=== PATIENT | female | born 1995 | race Caucasian/White ===

== ENCOUNTER 2017-03-24 01:35 | Emergency (ER) | payer SELFPAY ==
[~2017-03-24] VITALS: Ht 165.1 cm; Wt 54.0 kg
[2017-03-24 01:39] VITALS: Ht 165.1 cm; Wt 54.0 kg
== END 2017-03-24 05:08 | disposition left against medical advice (07) ==
LOC: FTE 01:35
DX: Z53.21 Procedure and treatment not carried out due to patient leaving prior to being seen by health care provider (principal)

== ENCOUNTER 2017-06-04 17:30 | Emergency (ER) | payer OTHER ==
[~2017-06-04] VITALS: Ht 162.6 cm; Wt 54.0 kg
[2017-06-04 17:31] VITALS: Ht 162.6 cm; Wt 54.0 kg
[2017-06-04 20:05] LABS: BASOPHILS % 0.4 % (0.0-2.0); EOSINOPHILS # 0.2 10^3/ul (0.0-0.5); EOSINOPHILS % 2.4 % (0.0-7.0); HEMATOCRIT 33.4 % (37.0-47.0); HEMOGLOBIN 10.7 g/dl (12.0-16.0); MEAN CORPUSCULAR HEMOGLOBIN 25.2 pg (29.0-33.0); MEAN CORPUSCULAR VOLUME 78.8 fl (82.0-101.0); MEAN PLATELET VOLUME 11.7 fl (7.4-10.4); MONOCYTE # 0.7 10^3/ul (0.3-0.9); MONOCYTES % 9.2 % (0.0-11.0); NEUTROPHILS % 62.6 % (39.0-77.0); PLATELET COUNT 230 10^3/UL (140-415); RED BLOOD COUNT 4.24 10^6/ul (4.20-5.40); RED CELL DISTRIBUTION WIDTH 16.2 % (11.5-14.5); WHITE BLOOD COUNT 7.9 10^3/ul (4.8-10.8)
[2017-06-04 20:19] LABS: ADD UMIC YES; UR ASCORBIC ACID 20 mg/dL (NEGATIVE); UR BILIRUBIN (Dip) NEGATIVE (NEGATIVE); UR BLOOD (Dip) NEGATIVE (NEGATIVE); UR CLARITY CLEAR (CLEAR); UR COLOR STRAW (YELLOW); UR GLUCOSE (Dip) NEGATIVE (NEGATIVE); UR KETONES (Dip) NEGATIVE (NEGATIVE); UR LEUKOCYTE ESTERASE (Dip) TRACE Leu/ul (NEGATIVE); UR NITRITE (Dip) NEGATIVE (NEGATIVE); UR RBC 0 /HPF (0-5); UR SPECIFIC GRAVITY (Dip) 1.013 (1.003-1.030); UR SQUAMOUS EPITHELIAL CELL FEW /HPF (FEW); UR TOTAL PROTEIN (Dip) NEGATIVE (NEGATIVE); UR UROBILINOGEN (Dip) NEGATIVE (NEGATIVE)
--- NOTE | 2017-06-04 21:01 | ERD ---
ER Documentation Chief Complaint Date/Time DATE: 06/04/17 TIME: 20:59 Chief Complaint 7/10 pelvic pain x 3 days denies bleeding HPI This is a 21-year-old female P0 presents to the emergency department complaining of intermittent 7 out of 10 pelvic pain for the past 2 days. LMP 1 month prior to being seen She denies any vaginal bleeding, dysuria, fevers. ROS All systems reviewed and are negative except as per history of present illness. Allergies Allergies: Coded Allergies: No Known Allergy (Unverified , 03/24/17) PMhx/Soc Medical and Surgical Hx: pt denies Medical Hx, pt denies Surgical Hx History of Surgery: Yes (appendectomy) Anesthesia Reaction: No Hx Neurological Disorder: No Hx Respiratory Disorders: No Hx Cardiac Disorders: No Hx Psychiatric Problems: No Hx Miscellaneous Medical Probl: No Hx Alcohol Use: No Hx Substance Use: No Hx Tobacco Use: No Smoking Status: Never smoker Physical Exam Vitals Vital Signs Date Time Temp Pulse Resp B/P Pulse Ox O2 Delivery O2 Flow Rate FiO2 06/04/17 17:31 99.0 79 16 106/59 100 Physical Exam Const: [] Head: Atraumatic Eyes: Normal Conjunctiva ENT: Normal External Ears, Nose and Mouth. Neck: Full range of motion..~ No meningismus. Resp: Clear to auscultation bilaterally Cardio: Regular rate and rhythm, no murmurs Abd: Soft, non tender, non distended. Normal bowel sounds Skin: No petechiae or rashes Back: No midline or flank tenderness Ext: No cyanosis, or edema Neur: Awake and alert Psych: Normal Mood and Affect Result Diagram: 06/04/17 1950 Results 24 hrs Laboratory Tests Test 06/04/17 19:48 06/04/17 19:50 Urine Color STRAW Urine Clarity CLEAR Urine pH 7.0 Urine Specific Lapel 1.013 Urine Ketones NEGATIVEmg/dL Urine Nitrite NEGATIVEmg/dL Urine Bilirubin NEGATIVEmg/dL Urine Urobilinogen NEGATIVEmg/dL Urine Leukocyte Esterase TRACELeu/ul Urine Microscopic RBC 0/HPF Urine Microscopic WBC 4/HPF Urine Squamous Epithelial Cells FEW/HPF Urine Hemoglobin NEGATIVEmg/dL Urine Glucose NEGATIVEmg/dL Urine Total Protein NEGATIVEmg/dl White Blood Count 7.910^3/ul Red Blood Count 4.2410^6/ul Hemoglobin 10.7g/dl Hematocrit 33.4% Mean Corpuscular Volume 78.8fl Mean Corpuscular Hemoglobin 25.2pg Mean Corpuscular Hemoglobin Concent 32.0g/dl Red Cell Distribution Width 16.2% Platelet Count 30314^3/UL Mean Platelet Volume 11.7fl Neutrophils % 62.6% Lymphocytes % 25.0% Monocytes % 9.2% Eosinophils % 2.4% Basophils % 0.4% Nucleated Red Blood Cells % 0.0/100WBC Neutrophils # 5.010^3/ul Lymphocytes # 2.010^3/ul Monocytes # 0.710^3/ul Eosinophils # 0.210^3/ul Basophils # 0.010^3/ul Nucleated Red Blood Cells # 0.010^3/ul TITI LESLIE PA-C Jun 04, 2017 21:01
--- NOTE | 2017-06-04 21:30 | RADRPT ---
PROCEDURE: US OB. CLINICAL INDICATION: . Vaginal bleeding. TECHNIQUE: Multiple sonographic images of the pelvis were obtained. Transabdominal and transvagin al views of the pelvis are available for review. The images were reviewed on a PACS workstation. COMPARISON: 10/22/2015 FINDINGS: Uterus is normal size at 8.4 x 4.6 x 5.1 cm. No intrauterine gestational sac, pole or heart m otion is identified. The endometrium is normal thickness and 10 mm. Uterus is otherwise unremarkab le. There is a complex right ovarian cyst 1.7 x 1.3 cm. The ovaries are otherwise normal in size an d echogenicity with normal vascular flow. Right ovary is 3.6 x 2.3 x 2.9 cm. Left ovary 2.2 x 1.3 x 2.3 cm. The adnexa are unremarkable. There is no adnexal mass. There is a small amount of free f luid in the anterior cul-de-sac. IMPRESSION: 1. No live intrauterine identified. Normal endometrium. Considerations include a missed , early intrauterine and ectopic . Small amount of free fluid in the ant erior cul-de-sac. No adnexal mass or free fluid to suggest ectopic although this cannot be excluded. 2. Complex/hemorrhagic right ovarian cyst. RPTAT: [facility]K .Navi Sierra MD, MD Date Time Electronically viewed and signed by .Navi Sierra MD, MD on 06/04/2017 21:29 .K/
[2017-06-04] MEDS ORDERED: IBUP400T22 PO (21:34)
[2017-06-04 21:47] VITALS: BP 113/81; PULSE 102; RESP 16; TEMP 98.6
== END 2017-06-04 21:48 | disposition home or self-care (01) ==
LOC: FTE 17:30
DX: O26.899 Other specified pregnancy related conditions, unspecified trimester (principal); R10.2 Pelvic and perineal pain; Z3A.00 Weeks of gestation of pregnancy not specified
CPT/HCPCS: 36415; 76801; 76817; 81001; 84702; 85025; 86900; 86901; Z7502

== ENCOUNTER 2017-06-08 15:28 | Emergency (ER) | payer SELFPAY | END 2017-06-08 18:32 | disposition left against medical advice (07) | LOC: E/R 15:28 | DX: Z53.21 Procedure and treatment not carried out due to patient leaving prior to being seen by health care provider (principal) ==

== ENCOUNTER 2018-01-30 13:36 | Outpatient (CLI) | END 2018-01-30 17:15 | disposition home or self-care (01) ==